=== PATIENT | female | born 1995 | race Caucasian/White ===

== ENCOUNTER 2017-10-12 11:13 | Emergency (ER) | payer BC ==
[2017-10-12 12:16] LABS: Bilirubin Negative (Negative); Blood, Urine Negative (Negative); Clarity CLOUDY (Clear); Glucose, Urine (Dipstick) Negative (Negative); Leukocyte Small (Negative); Nitrite Negative (Negative); Protein, Urine (Dipstick) Negative (Neg-Trace); Specific Gravity, Urine 1.019 (1.002-1.036); Urobilinogen 0.2 mg/dL (0.2-1.0); pH, Urine 7.5 (5.0-9.0)
[2017-10-12 12:18] LABS: Bacteria/HPF Rare-Few HPF (None Seen); Hyaline Casts/LPF 0-3 HYALINE CAST LPF (0-3 Hyaline); Pathc Cast-AUWi Flag 0.43 (0-2.49); RBC/HPF 0-3 HPF (0-3)
[2017-10-12 12:24] LABS: Renal Epithelial None Seen HPF (0-3); Transitional Epithelial NONE SEEN HPF (0-3)
[2017-10-12 12:25] LABS: Amphetamine Not Detected (NotDetected); Barbiturates Screen Not Detected (NotDetected); Benzodiazepine Screen Not Detected (NotDetected); Cocaine Metabolite Screen Not Detected (NotDetected); Medtox Control Line Valid? VALID (VALID); Medtox Reader # READER 1; Methadone Not Detected (NotDetected); Methamphetamine Not Detected (NotDetected); Opiate Screen Not Detected (NotDetected); Oxycodone Screen Not Detected (NotDetected); Phencyclidine (PCP) Not Detected (NotDetected); THC/Cannabinoid Screen Not Detected (NotDetected); Tricyclic Screen Not Detected (NotDetected)
--- NOTE | 2017-10-12 12:28 | CT ---
CT OF BRAIN PERFORMED WITHOUT CONTRAST ENHANCEMENT: Date: 10/12/17 HISTORY: Altered mental status. COMPARISON: 12/31/15. FINDINGS: The ventricular and cisternal system is within normal limits. There are no signs of intracerebral hem orrhage or extra-axial fluid collections. The mastoid air cells and visualized sinuses are clear. IMPRESSION: No acute intracranial abnormalities. POS: [facility]
--- NOTE | 2017-10-12 12:29 | RAD ---
PORTABLE AP CHEST RADIOGRAPH: Date: 10-12-17 History: Altered mental status. Comparison: 12-02-14 FINDINGS: Cardiac silhouette and pulmonary vasculature are within normal limits. The lungs are clear. There has been no interval change from prior exam given differences in depth of inspiration. IMPRESSION: No acute cardiopulmonary process. POS: [facility]
[2017-10-12] MEDS ORDERED: Naloxone HCl 2 mg/2 ml Syringe ONE (12:58)
[2017-10-12 13:08] LABS: #Eosinphils 0.1 thou/uL (0.0-0.7); #Lymphocytes 2.2 thou/uL (1.20-3.40); #Monocytes 0.3 thou/uL (0.11-0.59); #Neutrophils 3.2 thou/uL (1.40-6.50); %Basophils 0.2 % (0.0-1.0); %Eosinophils 0.9 % (0.0-10.0); %Lymphocytes 37.8 % (21.0-51.0); %Monocytes 5.8 % (0.0-10.0); %Neutrophils 55.2 % (42.0-75.0); Hemoglobin 14.3 g/dL (12.0-16.0); Mean Corpuscular HGB CONC 33.9 g/dL (32.0-36.0); Mean Corpuscular Hemoglobin 28.4 pg (27.0-31.0); Mean Corpuscular Volume 83.6 fl (81.0-99.0); Mean Platelet Volume 6.7 fL (7.4-10.4); Platelet Count 248 thou/uL (130-400); RBC Distribution Width 13.7 % (11.5-14.5); Red Blood Cell (RBC) Count 5.03 mill/uL (4.20-5.40); White Blood Cell (WBC) Count 5.8 thou/uL (4.8-10.8)
[2017-10-12 13:20] LABS: BHCG - Serum Negative (NEGATIVE); Pregs Control Background? CLEAR/WHITE (CLR/WHITE); Pregs Control Bar Appear? YES (CONTROL BAR)
[2017-10-12 13:33] LABS: Carbon Dioxide 31 mmol/L (22-29); Chloride 103 mmol/L (98-107); Potassium 4.6 mmol/L (3.5-5.1); Sodium 139 mmol/L (136-145)
[2017-10-12 13:34] LABS: ALT (SGPT) 19 U/L (8-55); AST (SGOT) 16 U/L (5-34); Acetaminophen Less than 6.0 mcg/mL (10.0-30.0); Albumin 4.5 g/dL (3.5-5.0); Alcohol Less than 10 mg/dL (Less than 10); Alkaline Phosphatase 91 U/L (40-150); Anion Gap 10 mmol/L (10-20); BUN (Urea Nitrogen) 7 mg/dL (7.0-18.7); Bilirubin, Total 0.3 mg/dL (0.2-1.2); CK (CPK) 70 U/L (29-168); Calc. Creatinine Clearance 0 mL/min (70-130); Calcium 9.9 mg/dL (7.8-10.44); Estimated GFR-MDRD Greater than 90; Globulin 3.5 g/dL (2.4-3.5); Glucose 83 mg/dL (70-105); Lipase 31 U/L (8-78); Salicylate Less than 8.0 mg/dL (15.0-30.0)
[2017-10-12] MEDS ORDERED: Lorazepam 2 MG/ML VIAL ONE ×2 (13:34→14:00)
[2017-10-12 13:37] LABS: CKMB 0.5 ng/mL (0-6.6); Troponin I Less than 0.010 ng/mL (< 0.028)
[2017-10-12] MEDS ORDERED: Water For Injection,Sterile 20 ML ONE (14:14)
[2017-10-12] MEDS ORDERED: Ziprasidone 20 MG VIAL ONE (14:14)
== END 2017-10-12 14:56 | disposition home or self-care (01) ==
LOC: ERS 11:13
DX: R41.82 Altered mental status, unspecified (principal); E66.9 Obesity, unspecified; F98.8 Other specified behavioral and emotional disorders with onset usually occurring in childhood and adolescence; F41.9 Anxiety disorder, unspecified; G47.00 Insomnia, unspecified; F43.10 Post-traumatic stress disorder, unspecified; R73.03 Prediabetes
CPT/HCPCS: 36416; 51701; 70450; 71045; 80053; 80306; 80307; 81003; 81015; 82140; 82553; 83690; 84443; 84484; 84703; 85025; 93005; 96361; 96372; 96374; 96375; A4353; J2060; J2310; J3486

== ENCOUNTER 2017-11-19 13:59 | Emergency (ER) | payer BC ==
[2017-11-19 14:48] LABS: #Eosinphils 0.1 thou/uL (0.0-0.7); #Lymphocytes 2.1 thou/uL (1.20-3.40); #Monocytes 0.4 thou/uL (0.11-0.59); #Neutrophils 3.4 thou/uL (1.40-6.50); %Eosinophils 0.9 % (0.0-10.0); %Lymphocytes 35.6 % (21.0-51.0); %Monocytes 6.4 % (0.0-10.0); %Neutrophils 57.1 % (42.0-75.0); Hemoglobin 12.7 g/dL (12.0-16.0); Mean Corpuscular HGB CONC 32.6 g/dL (32.0-36.0); Mean Corpuscular Volume 82.9 fl (81.0-99.0); Mean Platelet Volume 6.9 fL (7.4-10.4); Platelet Count 208 thou/uL (130-400); RBC Distribution Width 13.5 % (11.5-14.5); Red Blood Cell (RBC) Count 4.68 mill/uL (4.20-5.40)
[2017-11-19 14:57] LABS: BHCG - Serum Negative (NEGATIVE); Pregs Control Background? CLEAR/WHITE (CLR/WHITE); Pregs Control Bar Appear? YES (CONTROL BAR)
[2017-11-19 15:04] LABS: ALT (SGPT) 25 U/L (8-55); AST (SGOT) 17 U/L (5-34); Albumin 4.1 g/dL (3.5-5.0); Alkaline Phosphatase 93 U/L (40-150); Anion Gap 12 mmol/L (10-20); BUN (Urea Nitrogen) 8 mg/dL (7.0-18.7); Bilirubin, Total 0.3 mg/dL (0.2-1.2); Calc. Creatinine Clearance 0 mL/min (70-130); Calcium 9.1 mg/dL (7.8-10.44); Carbon Dioxide 23 mmol/L (22-29); Chloride 107 mmol/L (98-107); Estimated GFR-MDRD Greater than 90; Globulin 2.9 g/dL (2.4-3.5); Glucose 88 mg/dL (70-105); Potassium 3.9 mmol/L (3.5-5.1); Sodium 138 mmol/L (136-145)
== END 2017-11-19 16:50 | disposition home or self-care (01) ==
LOC: ERS 13:59
DX: R55 Syncope and collapse (principal); E66.9 Obesity, unspecified; F41.9 Anxiety disorder, unspecified; F32.9 Major depressive disorder, single episode, unspecified; G47.00 Insomnia, unspecified; F43.10 Post-traumatic stress disorder, unspecified; F98.8 Other specified behavioral and emotional disorders with onset usually occurring in childhood and adolescence; Z79.899 Other long term (current) drug therapy
CPT/HCPCS: 36415; 80053; 84703; 85025; 93005; 96361; 96374

== ENCOUNTER 2018-09-26 09:30 | Outpatient (CLI) | payer BC ==
--- NOTE | 2018-09-26 10:20 | RAD ---
TWO VIEWS LEFT HAND: Comparison: None. History: Left hand pain. FINDINGS: Three views of the left hand shows no evidence of acute fracture or dislocation. No degenerative aleman ges are seen. No soft tissue swelling is present. IMPRESSION: Unremarkable exam. POS: [facility]
== END 2018-09-26 09:31 | disposition home or self-care (01) ==
LOC: RAD 09:30
PROVIDERS: ATTEND Nurse Practitioner Family
DX: M79.642 Pain in left hand (principal)

== ENCOUNTER 2019-02-22 17:37 | Emergency (ER) | payer BC ==
[2019-02-22] MEDS ORDERED: Ketorolac Tromethamine 60 MG/2 ML VIAL ONE (18:24)
[2019-02-22 18:51] LABS: Bilirubin Negative (Negative); Blood, Urine Negative (Negative); Glucose, Urine (Dipstick) Negative (Negative); Leukocyte Trace (Negative); Nitrite Negative (Negative); Protein, Urine (Dipstick) Negative (Neg-Trace); Urobilinogen 0.2 mg/dL (Less than 2)
[2019-02-22 18:52] LABS: Clarity Hazy (Clear)
[2019-02-22 18:56] LABS: Bacteria/HPF 2+ HPF (None Seen); RBC/HPF None Seen HPF (0-3); Squamous Epithelial 21-50 HPF (0-3)
== END 2019-02-22 19:15 | disposition home or self-care (01) ==
LOC: SCSER 17:37
DX: M54.31 Sciatica, right side (principal); E66.9 Obesity, unspecified; F41.9 Anxiety disorder, unspecified; F32.9 Major depressive disorder, single episode, unspecified; F43.10 Post-traumatic stress disorder, unspecified; G47.00 Insomnia, unspecified; F90.9 Attention-deficit hyperactivity disorder, unspecified type; Z79.899 Other long term (current) drug therapy
CPT/HCPCS: 81003; 81015; 96372; 99284; J1885

== ENCOUNTER 2019-12-18 00:46 | Emergency (ER) | payer SELFPAY ==
--- NOTE | 2019-12-18 07:47 | ULT ---
PRELIMINARY REPORT/[facility]/EMERGENCY AFTER HOURS PROCEDURE EXAM: US Pelvis, Complete. CLINICAL HISTORY: Pelvic pain x 2 days that is steadily increasing TECHNIQUE: Transvaginal and transabdominal pelvic ultrasound (complete) with image documentation. COMPARISON: None provided. FINDINGS: Evaluation is limited due to the patient's body habitus along with overlying bowel gas and the position of the ovaries ENDOMETRIUM: Normal thickness. Measures 8.7 mm and demonstrates an IUD UTERUS/CERVIX: Normal size and contour. No fibroid detected. Measures 6.3 x 3.1 x 3.9 cm RIGHT OVARY: Normal follicles. No adnexal mass. Measures 2.3 x 4.2 x 2.2 cm. Evaluation for blood flow was limit ed by overlying bowel gas. LEFT OVARY: Normal follicles. No adnexal mass. Measures 3.2 x 1.7 x 1.8 cm. Venous flow was identified however arterial flow could not be established due to deep positioning of the ovary. FREE FLUID: No free fluid. IMPRESSION: Limited evaluation due to patient's body habitus along with overlying bowel gas and the positioning o f the ovaries. Venous flow was identified in the LEFT ovary however arterial flow was difficult to establish bilaterally ELECTRONICALLY SIGNED BY: Ren Oropeza MD Dec 18, 2019 2:38:34 AM CDT This report is intended for review by the ordering physician only, in accordance of law. If you recei ve this report in error, please call [facility] at [phone]. FINAL REPORT Final report by Dr. Martinez Emergency after-hours study ULTRASOUND PELVIC ULTRASOUND TRANSVAGINAL DOPPLER DUPLEX: DATE: 12/18/2019 2:15 AM HISTORY: Right-sided pelvic pain in 24-year-old female TECHNIQUE: Transabdominal transducer and endovaginal transducer used to visualize intrapelvic contents with taylor scale, color-flow, and spectral analysis. FINDINGS: Uterus is normal in size and shape. Endometrial stripe is 9 mm, and contains an IUD. No uterine leiomyoma is identified. Bilateral ovaries are normal in size. Difficult to detect flow in ovaries due to technical factors, including deep position of ovaries and body habitus. No flow detected in right ovary, due to technical factors. Only venous flow detected in left ovary. No ovarian cyst 2 cm or larger is identified. Minimal amount of free fluid is identified in the cul-de-sac. Agree with preliminary report by [facility]. IMPRESSION: 1. Intrauterine device. 2. Endometrial stripe 9 mm. 3. Unable to document flow in right ovary due to technical factors. Transcribed Date/Time: 12/18/2019 7:58 AM
== END 2019-12-18 03:25 | disposition home or self-care (01) ==
LOC: ERS 00:46
DX: R10.31 Right lower quadrant pain (principal); E66.9 Obesity, unspecified; F41.9 Anxiety disorder, unspecified; F32.9 Major depressive disorder, single episode, unspecified; F43.10 Post-traumatic stress disorder, unspecified; G47.00 Insomnia, unspecified
CPT/HCPCS: 76856

== ENCOUNTER 2020-07-26 08:33 | Outpatient (CLI) | payer BC ==
[2020-07-26 22:50] LABS: SARS-CoV-2 PCR by NAA Not Detected (NotDetected)
== END 2020-07-26 08:34 | disposition home or self-care (01) ==
LOC: LABBT 08:33
PROVIDERS: ATTEND Internal Medicine
DX: R10.33 Periumbilical pain (principal); R11.2 Nausea with vomiting, unspecified; Z20.822 Contact with and (suspected) exposure to COVID-19
CPT/HCPCS: 87635; U0003; U0005

== ENCOUNTER 2020-07-28 08:43 | Outpatient (CLI) | payer BC ==
--- NOTE | 2020-07-28 14:38 | RAD ---
EXAM: XR UGI Air Contrast PROVIDED CLINICAL HISTORY: Periumbilical abdominal pain. Persistent nausea and vomiting. History of hiatal hernia repair at a yo [age] age. COMPARISON: None FINDINGS: There is normal esophageal motility demonstrated during the exam. Esophagus has a normal appearance. No mucosal irregularity or focal area of narrowing is seen in the esophagus. There is what appears to be a paraesophageal hernia. However, patient indicates history of prior hiatal hernia repair, and this could be related to portion of the stomach utilized for the fundoplication procedure which is not tightly wrapped as this portion of the stomach does fill with contrast. Mild gastroesophageal ref lux is visualized to the level of the distal esophagus. The stomach, duodenum, and visualized proximal small bowel demonstrate a normal sonographic appearance. Skeletal AP view abdomen demonstrates a nonspecific bowel gas pattern with small amount retained feca l material seen throughout the colon. Lateral aspect of the abdomen are incompletely imaged. IMPRESSION: 1. Findings suggestive of a paraesophageal hernia; however, this could be related to loosely wrapped portion of the stomach utilized for a prior fundoplication procedure which fills with contrast. Mild gastroesophageal reflux is noted during a single episode of this examination to the level of the distal esophagus.
== END 2020-07-28 08:44 | disposition home or self-care (01) ==
LOC: RAD 08:43
PROVIDERS: ATTEND Internal Medicine
DX: K21.9 Gastro-esophageal reflux disease without esophagitis (principal); R10.33 Periumbilical pain; R11.2 Nausea with vomiting, unspecified
CPT/HCPCS: 74246

== ENCOUNTER 2020-09-21 09:21 | Outpatient (CLI) | payer BC | END 2020-09-21 09:22 | disposition home or self-care (01) | LOC: RAD 09:21 | PROVIDERS: ATTEND Nurse Practitioner Family | DX: M25.511 Pain in right shoulder (principal) ==

== ENCOUNTER 2020-12-07 13:41 | Outpatient (CLI) | payer BC | END 2020-12-07 13:42 | disposition home or self-care (01) | LOC: TBSIIMAG 13:41 | PROVIDERS: ATTEND Nurse Practitioner Family | DX: M25.511 Pain in right shoulder (principal); S46.911A Strain of unspecified muscle, fascia and tendon at shoulder and upper arm level, right arm, initial encounter ==

== ENCOUNTER 2021-02-10 07:01 | Outpatient (CLI) | payer BC, MEDICAID | END 2021-02-10 07:02 | disposition home or self-care (01) | LOC: BICULT 07:01 | PROVIDERS: ATTEND Physician Assistant Medical | DX: K21.9 Gastro-esophageal reflux disease without esophagitis (principal); R10.13 Epigastric pain; K59.00 Constipation, unspecified; K80.20 Calculus of gallbladder without cholecystitis without obstruction; K82.8 Other specified diseases of gallbladder | CPT/HCPCS: 93975 ==

== ENCOUNTER 2021-02-21 09:12 | Outpatient (CLI) | payer BC ==
[2021-02-21 11:49] LABS: #Eosinphils 0.1 10x3/uL (0.0-0.5); #Monocytes 0.6 10x3/uL (0.0-1.1); #Neutrophils 3.4 10x3/uL (1.5-8.4); %Basophils 0.3 % (0.0-2.0); %Eosinophils 0.9 % (0.0-6.0); %Lymphocytes 35.6 % (18.0-47.0); %Neutrophils 53.3 % (40.0-75.0); Hemoglobin 13.2 g/dL (12.0-15.5); Mean Corpuscular HGB CONC 32.8 g/dL (32.0-36.0); Mean Corpuscular Hemoglobin 28.4 pg (27.0-33.0); Mean Corpuscular Volume 86.6 fl (81.6-98.3); Mean Platelet Volume 10.4 fl (7.4-10.4); Platelet Count 244 10x3/uL (150-450); RBC Distribution Width 13.6 % (11.5-14.5); Red Blood Cell (RBC) Count 4.64 10x6/uL (3.90-5.03); White Blood Cell (WBC) Count 6.4 10x3/uL (3.5-10.5)
[2021-02-21 11:59] LABS: BHCG - Serum Negative (NEGATIVE); Pregs Control Background? CLEAR/WHITE (CLR/WHITE); Pregs Control Bar Appear? YES (CONTROL BAR)
[2021-02-21 12:05] LABS: ALT (SGPT) 24 U/L (8-55); AST (SGOT) 16 U/L (5-34); Albumin 3.9 g/dL (3.5-5.0); Alkaline Phosphatase 68 U/L (40-110); Anion Gap 16 mmol/L (10-20); BUN (Urea Nitrogen) 7 mg/dL (7.0-18.7); Bilirubin, Direct 0.1 mg/dL (0.1-0.3); Bilirubin, Total 0.2 mg/dL (0.2-1.2); Calc. Creatinine Clearance 0 mL/min (70-130); Calcium 9.4 mg/dL (7.8-10.44); Carbon Dioxide 23 mmol/L (22-29); Chloride 105 mmol/L (98-107); Glucose 94 mg/dL (70-105); Potassium 4.4 mmol/L (3.5-5.1); Protein, Total 6.9 g/dL (6.0-8.3); Sodium 140 mmol/L (136-145)
[2021-02-21 22:32] LABS: SARS-CoV-2 PCR by NAA Not Detected (NotDetected)
== END 2021-02-21 09:13 | disposition home or self-care (01) ==
LOC: LABBT 09:12
PROVIDERS: ATTEND Surgery
DX: Z01.812 Encounter for preprocedural laboratory examination (principal); K80.20 Calculus of gallbladder without cholecystitis without obstruction; Z20.822 Contact with and (suspected) exposure to COVID-19; J34.2 Deviated nasal septum
CPT/HCPCS: 70486; 80048; 80076; 84703; 85025; U0003; U0005

== ENCOUNTER 2021-02-21 11:15 | Outpatient (CLI) | payer BC | END 2021-02-21 11:16 | disposition home or self-care (01) | LOC: CTENTCT 11:15 | PROVIDERS: ATTEND Otolaryngology Plastic Surgery within the Head & Neck | DX: J34.2 Deviated nasal septum (principal) | CPT/HCPCS: 70486 ==

== ENCOUNTER 2021-02-24 06:29 | Day surgery (SDC) | payer BC ==
[2021-02-22 12:25] VITALS: BMI 40.7
[2021-02-24] MEDS ORDERED: Bupivacaine 0.25% HCL 30 ML VIAL ONE (08:17)
[2021-02-24] MEDS ORDERED: Lidocaine 1% w/Epinephrine 1:100K 20 ML VIAL ONE (08:17)
[2021-02-24] MEDS ORDERED: Midazolam HCl 2 mg/2 ml Vial ONE (09:21)
[2021-02-24] MEDS ORDERED: Fentanyl 100 MCG/2 ML VIAL ONE ×2 (09:21→10:29)
[2021-02-24] MEDS ORDERED: Lidocaine 1% PF 5 ML VIAL ONE (09:31)
[2021-02-24] MEDS ORDERED: Ondansetron PF 4 MG/2 ML Vial ONE (09:31)
[2021-02-24] MEDS ORDERED: Ketorolac Tromethamine 30 MG/ML VIAL ONE (09:31)
[2021-02-24] MEDS ORDERED: Dexamethasone 20 MG/5 ML VIAL ONE (09:31)
[2021-02-24] MEDS ORDERED: Rocuronium Bromide 10 MG/ML (10ML VIAL) ONE (09:31)
[2021-02-24] MEDS ORDERED: PROPOFOL 200 MG/20 ML VIAL ONE (09:31)
[2021-02-24] MEDS ORDERED: Meperidine HCl/PF 25 MG/ML VIAL ONE (10:38)
[2021-02-24] MEDS ORDERED: HYDROcodone/Acetaminophen 5/325 mg Tablet ONE (11:24)
== END 2021-02-24 11:45 | disposition home or self-care (01) ==
LOC: SDC 06:29
PROVIDERS: ATTEND Surgery
PROC: 0FT44ZZ Resection of Gallbladder, Percutaneous Endoscopic Approach (ICD-10-PCS; principal; 2021-02-24)
DX: K80.10 Calculus of gallbladder with chronic cholecystitis without obstruction (principal); Z88.8 Allergy status to other drugs, medicaments and biological substances; Z79.899 Other long term (current) drug therapy; Z98.890 Other specified postprocedural states
CPT/HCPCS: 88304; J0690; J1100; J1885; J2175; J2250; J2405; J2704; J3010; S0020

== ENCOUNTER 2021-03-01 01:58 | Emergency (ER) | payer BC ==
[2021-03-01] MEDS ORDERED: Piperacillin/Tazobactam 3.375 GM VIAL ONE (03:25)
[2021-03-01] MEDS ORDERED: Ondansetron PF 4 MG/2 ML Vial ONE (03:25)
[2021-03-01] MEDS ORDERED: Morphine 4 MG/ML VIAL ONE (03:47)
[2021-03-01 03:56] LABS: #Eosinphils 0.1 thou/uL (0.0-0.7); #Lymphocytes 1.5 thou/uL (1.20-3.40); #Monocytes 0.4 thou/uL (0.11-0.59); %Basophils 0.2 % (0.0-1.0); %Eosinophils 0.9 % (0.0-10.0); %Lymphocytes 18.7 % (21.0-51.0); %Monocytes 4.8 % (0.0-10.0); %Neutrophils 75.4 % (42.0-75.0); Hemoglobin 13.6 g/dL (12.0-16.0); Mean Corpuscular HGB CONC 32.4 g/dL (32.0-36.0); Mean Corpuscular Hemoglobin 28.8 pg (27.0-31.0); Mean Corpuscular Volume 88.7 fL (78.0-98.0); Mean Platelet Volume 7.4 fL (7.4-10.4); Platelet Count 223 thou/uL (130-400); RBC Distribution Width 12.6 % (11.5-14.5); Red Blood Cell (RBC) Count 4.73 mill/uL (4.20-5.40)
[2021-03-01 04:04] LABS: BHCG - Serum Negative (NEGATIVE); Pregs Control Background? CLEAR/WHITE (CLR/WHITE); Pregs Control Bar Appear? YES (CONTROL BAR)
[2021-03-01 04:15] LABS: ALT (SGPT) 63 U/L (8-55); AST (SGOT) 97 U/L (5-34); Albumin 3.8 g/dL (3.5-5.0); Alkaline Phosphatase 132 U/L (40-110); Anion Gap 13 mmol/L (10-20); BUN (Urea Nitrogen) 14 mg/dL (7.0-18.7); Bilirubin, Total 0.9 mg/dL (0.2-1.2); Calc. Creatinine Clearance 0 mL/min (70-130); Calcium 9.1 mg/dL (7.8-10.44); Carbon Dioxide 28 mmol/L (22-29); Chloride 99 mmol/L (98-107); Globulin 3.3 g/dL (2.4-3.5); Glucose 101 mg/dL (70-105); Potassium 4.3 mmol/L (3.5-5.1); Protein, Total 7.1 g/dL (6.0-8.3); Sodium 136 mmol/L (136-145)
[2021-03-01] MEDS ORDERED: Ketorolac Tromethamine 30 MG/ML VIAL ONE (04:41)
[2021-03-01 05:07] LABS: Bilirubin Negative (Negative); Blood, Urine Negative (Negative); Clarity Clear (Clear); Glucose, Urine (Dipstick) Normal (Negative); Ketone, Urine Trace mg/dL (Negative); Leukocyte 250 Leu/uL (Negative); Nitrite Negative (Negative); Protein, Urine (Dipstick) 20 mg/dL (Neg-Trace); pH, Urine 7.5 (5.0-9.0)
[2021-03-01 05:08] LABS: Bacteria/HPF 1+ HPF (None Seen); Specific Gravity, Urine 1.047 (1.002-1.036)
[2021-03-01 07:25] LABS: Lactic Acid 2.5 mmol/L (0.5-2.2)
== END 2021-03-01 07:40 | disposition home or self-care (01) ==
LOC: ERS 01:58
DX: G89.18 Other acute postprocedural pain (principal); R10.11 Right upper quadrant pain; R10.817 Generalized abdominal tenderness
CPT/HCPCS: 36415; 71045; 74177; 80053; 81003; 81015; 83605; 84703; 85025; 87040; 87086; 96365; 96375; J1885; J2270; J2405; J2543

== ENCOUNTER 2021-03-04 10:31 | Outpatient (CLI) | payer BC | END 2021-03-04 10:32 | disposition home or self-care (01) | LOC: BICRAD 10:31 | PROVIDERS: ATTEND Anesthesiology Pain Medicine | DX: M16.11 Unilateral primary osteoarthritis, right hip (principal) ==

== ENCOUNTER 2021-12-04 15:26 | Emergency (ER) | payer OTHER ==
[~2021-12-04 15:26] MED LIST: ISOVUE-370 76%-LOCM 1 ML ONE
[2021-12-04 16:41] LABS: #Basophils 0.1 thou/uL (0.0-0.2); #Eosinphils 0.1 thou/uL (0.0-0.7); #Lymphocytes 3.1 thou/uL (1.20-3.40); #Monocytes 0.6 thou/uL (0.11-0.59); #Neutrophils 3.5 thou/uL (1.40-6.50); %Basophils 0.8 % (0.0-1.0); %Eosinophils 1.5 % (0.0-10.0); %Monocytes 7.7 % (0.0-10.0); Hemoglobin 12.7 g/dL (12.0-16.0); Mean Corpuscular HGB CONC 33.7 g/dL (32.0-36.0); Mean Platelet Volume 6.7 fL (7.4-10.4); Platelet Count 292 thou/uL (130-400); RBC Distribution Width 13.8 % (11.5-14.5); Red Blood Cell (RBC) Count 4.39 mill/uL (4.20-5.40); White Blood Cell (WBC) Count 7.4 thou/uL (4.8-10.8)
[2021-12-04 16:46] LABS: BHCG - Serum Negative (NEGATIVE); Pregs Control Background? CLEAR/WHITE (CLR/WHITE); Pregs Control Bar Appear? YES (CONTROL BAR)
[2021-12-04 17:01] LABS: ALT (SGPT) 19 U/L (8-55); AST (SGOT) 18 U/L (5-34); Alkaline Phosphatase 60 U/L (40-110); Anion Gap 15 mmol/L (10-20); BUN (Urea Nitrogen) 10 mg/dL (7.0-18.7); Bilirubin, Total 0.3 mg/dL (0.2-1.2); Calc. Creatinine Clearance 0 mL/min (70-130); Calcium 9.6 mg/dL (7.8-10.44); Carbon Dioxide 23 mmol/L (22-29); Chloride 105 mmol/L (98-107); Estimated GFR 122; Globulin 3.8 g/dL (2.4-3.5); Glucose 82 mg/dL (70-105); Lipase 28 U/L (8-78); Potassium 4.2 mmol/L (3.5-5.1); Protein, Total 7.8 g/dL (6.0-8.3); Sodium 139 mmol/L (136-145)
[2021-12-04] MEDS ORDERED: Ketorolac Tromethamine 30 MG/ML VIAL ONE (19:05)
[2021-12-04] MEDS ORDERED: Morphine 4 MG/ML VIAL ONE (19:05)
[2021-12-04 19:38] LABS: Bilirubin Negative (Negative); Blood, Urine Negative (Negative); Clarity Clear (Clear); Glucose, Urine (Dipstick) Normal (Negative); Ketone, Urine Trace mg/dL (Negative); Leukocyte Negative Leu/uL (Negative); Nitrite Negative (Negative); Protein, Urine (Dipstick) Negative (Neg-Trace); Specific Gravity, Urine 1.025 (1.002-1.036); Urobilinogen Normal mg/dL (Less than 2)
== END 2021-12-04 21:46 ==
LOC: ERS 15:26
DX: R10.32 Left lower quadrant pain (principal)
CPT/HCPCS: 36415; 74177; 76856; 80053; 81003; 83690; 84703; 85025; 96374; 96375; J1885; J2270; Q9966

== ENCOUNTER 2022-02-03 15:47 | Outpatient (CLI) | payer OTHER | END 2022-02-03 15:48 | disposition home or self-care (01) | LOC: BICCT 15:47 | PROVIDERS: ATTEND Otolaryngology Plastic Surgery within the Head & Neck | DX: J01.90 Acute sinusitis, unspecified (principal) ==

== ENCOUNTER 2022-02-16 14:40 | Outpatient (CLI) | payer OTHER | END 2022-02-16 14:41 | disposition home or self-care (01) | LOC: ULT 14:40 | PROVIDERS: ATTEND Obstetrics & Gynecology | DX: Z30.46 Encounter for surveillance of implantable subdermal contraceptive (principal) | CPT/HCPCS: 76999 ==

== ENCOUNTER 2022-02-22 11:27 | Outpatient (CLI) | payer OTHER | END 2022-02-22 11:28 | disposition home or self-care (01) | LOC: BICRAD 11:27 | PROVIDERS: ATTEND Obstetrics & Gynecology | DX: Z30.46 Encounter for surveillance of implantable subdermal contraceptive (principal) ==

== ENCOUNTER 2023-04-09 17:00 | Outpatient (CLI) | payer OTHER | END 2023-04-09 17:01 | disposition home or self-care (01) | LOC: SLEEPLAB 17:00 | PROVIDERS: ATTEND Internal Medicine Critical Care Medicine | DX: G47.33 Obstructive sleep apnea (adult) (pediatric) (principal) | CPT/HCPCS: 95800 ==

== ENCOUNTER 2023-05-14 17:00 | Outpatient (CLI) | payer OTHER | END 2023-05-14 17:01 | disposition home or self-care (01) | LOC: SLEEPLAB 17:00 | PROVIDERS: ATTEND Internal Medicine Critical Care Medicine | DX: G47.33 Obstructive sleep apnea (adult) (pediatric) (principal); G47.10 Hypersomnia, unspecified | CPT/HCPCS: 95810 ==